=== PATIENT | male | born 1945 | race Caucasian/White ===

== ENCOUNTER 2024-01-23 20:33 | Inpatient (IN) | payer OTHER, MEDICARE ==
[~2024-01-23] VITALS: Ht 172.7 cm; Wt 54.4 kg
[2024-01-23 22:06] VITALS: BP_SYST 147; PULSE 103; RESP 16; TEMP 101.1; O2SAT 94
[2024-01-23 22:24] LABS: BILIRUBIN,URINE NEGATIVE (NEGATIVE); BLOOD, URINE NEGATIVE (NEGATIVE); CLARITY/URINE CLEAR (CLEAR); COLOR,URINE YELLOW (YELLOW); GLUCOSE,URINE TRACE (NEGATIVE); KETONES,URINE NEGATIVE (NEGATIVE); LEUKOCYTE ESTERASE ,URINE NEGATIVE (NEGATIVE); NITRITE, URINE NEGATIVE (NEGATIVE); PROTEIN URINE TRACE (NEGATIVE); UROBILINOGEN,URINE 0.2 (0.2-1.0)
[2024-01-23 22:29] LABS: BASOPHILS # (AUTO) 0.1 K/uL (0.0-0.2); BASOPHILS % (AUTO) 0.7 % (0.0-2.0); EOSINOPHILS % (AUTO) 0.5 % (0.0-4.0); HEMATOCRIT 26.9 % (36-54); HEMOGLOBIN 9.1 g/dL (14.0-18.0); LYMPHOCYTES # (AUTO) 0.4 K/uL (1.0-5.5); LYMPHOCYTES % (AUTO) 4.6 % (20.5-51.5); MEAN CORPUSCULAR HEMOGLOBIN 36 pg (27-31); MEAN CORPUSCULAR HGB CONC 34 % (32-36); MEAN CORPUSCULAR VOLUME 105 fL (79.0-98.0); MONOCYTES # (AUTO) 0.4 K/uL (0.0-1.0); MONOCYTES % (AUTO) 4.4 % (1.7-9.3); NEUTROPHILS # (AUTO) 8.3 K/uL (1.8-7.7); NEUTROPHILS % (AUTO) 89.8 % (40.0-70.0); PLATELET COUNT (AUTO) 288 K/uL (130-430); RED BLOOD CELL COUNT(AUTO) 2.56 MIL/uL (4.2-6.2); RED CELL DISTRIBUTION WIDTH 21.5 % (9.0-15.0); WHITE BLOOD COUNT (AUTO) 9.3 K/uL (4.8-10.8)
[2024-01-23 22:32] LABS: ERYTHROCYTE SEDIMENTATION RATE 48 MM/HR (0-15)
[2024-01-23 22:34] LABS: COVID19 ANTIGEN SOFIA FIA NEGATIVE (NEGATIVE)
[2024-01-23 22:36] LABS: RBC,URINE 0-3 /HPF (0-3); WBC,URINE NONE SEEN /HPF (0-3)
[2024-01-23 22:37] LABS: BACTERIA,URINE None Seen /HPF (None Seen); INFLUENZA TYPE A Negative (NEGATIVE); INFLUENZA TYPE B NEGATIVE (NEGATIVE); MUCUS,URINE None Seen /LPF (None Seen)
[2024-01-23 22:52] LABS: BLOOD GAS BASE EXCESS 1.3 mmol/L (-3.0-3.0); BLOOD GAS HCO3 23.9 mmol/L (21.0-27.0); BLOOD GAS PCO2 32.3 mmHg (32.0-45.0); BLOOD GAS PH 7.487 (7.350-7.450); BLOOD GAS PO2 67.9 mmHg (75.0-100.0)
[2024-01-23 22:59] LABS: ALANINE AMINOTRANSFERASE 17 U/L (12-78); ALBUMIN 3.2 g/dL (3.4-4.8); ANION GAP 11 (5-15); ASPARTATE AMINOTRANSFERASE 24 U/L (10-37); CALCIUM 8.9 mg/dL (8.4-11.0); CARBON DIOXIDE 29 mmol/L (23-29); CHLORIDE 101 mmol/L (98-107); CREATININE 0.82 mg/dL (0.55-1.30); GLUCOSE 216 mg/dL (74-106); POTASSIUM 4.9 mmol/L (3.5-5.1); SODIUM SERUM 141 mmol/L (136-145); TOTAL BILIRUBIN 0.4 mg/dL (0.0-1.0); TOTAL PROTEIN, SERUM 6.8 g/dL (6.4-8.3); UREA NITROGEN, BLOOD 21 mg/dL (8-21)
[2024-01-23 23:01] LABS: ANISOCYTOSIS 2+; OVALOCYTES FEW; TEAR DROP CELLS FEW
[2024-01-23 23:29] LABS: BILIRUBIN,DIRECT 0.1 mg/dL (0.0-0.3)
[2024-01-23] MEDS ORDERED: AZITHROMYCIN 500 MG/VIAL (ZITHROMAX) IV ONE (23:50)
[2024-01-24] MEDS: cefTRIAXone 1 GM IVPB PREMIX 50 ML IV ONE
[2024-01-24] MEDS: NACL 0.9% 2,000 ML IV ONE (00:04)
[2024-01-24] MEDS: AZITHROMYCIN 500 MG in NS 250 ML IV ONE (00:10)
[2024-01-24] MEDS: NACL 0.9% 1,000 ML IV SCH (04:29)
[2024-01-24] MEDS ORDERED: DABI150C PO (04:52)
[2024-01-24] MEDS ORDERED: GLIP5TAB26 PO (04:52)
[2024-01-24] MEDS ORDERED: MORP15TA PO (04:54)
[2024-01-24] MEDS ORDERED: METF-379 PO (04:54)
[2024-01-24] MEDS ORDERED: ACET-73 PO (04:57)
[2024-01-24] MEDS ORDERED: PREG25CA19 PO (04:57)
[2024-01-24] MEDS ORDERED: FAMO20TA8 PO (04:57)
[2024-01-24] MEDS ORDERED: FOLI-43 PO (04:57)
[2024-01-24] MEDS ORDERED: LIP40 PO (05:04)
[2024-01-24] MEDS ORDERED: POLY17PO4 PO (05:04)
[2024-01-24] MEDS ORDERED: MOME13HF12 INH (05:04)
[2024-01-24] MEDS ORDERED: BISA-79 PO (05:04)
[2024-01-24] MEDS ORDERED: AZEL137S7 NS (05:04)
[2024-01-24] MEDS ORDERED: MONT-47 PEG (05:04)
[2024-01-24] MEDS ORDERED: MET2.5 PO (05:04)
[2024-01-24 07:20] LABS: BASOPHILS % (AUTO) 0.2 % (0.0-2.0); EOSINOPHILS % (AUTO) 0.4 % (0.0-4.0); HEMATOCRIT 23.1 % (36-54); HEMOGLOBIN 7.7 g/dL (14.0-18.0); LYMPHOCYTES # (AUTO) 0.6 K/uL (1.0-5.5); LYMPHOCYTES % (AUTO) 8.2 % (20.5-51.5); MEAN CORPUSCULAR HEMOGLOBIN 35 pg (27-31); MEAN CORPUSCULAR HGB CONC 34 % (32-36); MEAN CORPUSCULAR VOLUME 106 fL (79.0-98.0); MONOCYTES # (AUTO) 0.3 K/uL (0.0-1.0); MONOCYTES % (AUTO) 4.4 % (1.7-9.3); NEUTROPHILS # (AUTO) 6.3 K/uL (1.8-7.7); NEUTROPHILS % (AUTO) 86.8 % (40.0-70.0); PLATELET COUNT (AUTO) 234 K/uL (130-430); RED BLOOD CELL COUNT(AUTO) 2.18 MIL/uL (4.2-6.2); RED CELL DISTRIBUTION WIDTH 22.1 % (9.0-15.0); WHITE BLOOD COUNT (AUTO) 7.2 K/uL (4.8-10.8)
[2024-01-24 07:54] LABS: ALANINE AMINOTRANSFERASE 11 U/L (12-78); ALBUMIN 2.2 g/dL (3.4-4.8); ANION GAP 11 (5-15); ASPARTATE AMINOTRANSFERASE 6 U/L (10-37); CALCIUM 8.2 mg/dL (8.4-11.0); CARBON DIOXIDE 26 mmol/L (23-29); CHLORIDE 107 mmol/L (98-107); CREATININE 0.78 mg/dL (0.55-1.30); GLUCOSE 176 mg/dL (74-106); POTASSIUM 3.8 mmol/L (3.5-5.1); SODIUM SERUM 144 mmol/L (136-145); TOTAL BILIRUBIN 0.3 mg/dL (0.0-1.0); TOTAL PROTEIN, SERUM 5.5 g/dL (6.4-8.3); UREA NITROGEN, BLOOD 16 mg/dL (8-21)
[2024-01-24] MEDS: HEPARIN SODIUM,PORCINE 5,000 UNITS/ML VIAL SUBCUT ONE (11:15)
[2024-01-24 13:35] LABS: INR 1.3 (0.80-1.20); PROTHROMBIN TIME 13.6 SECS (9.5-12.5)
[2024-01-24] MEDS: POLYETHYLENE GLYCOL 3350, 17 GM/ POWD.PACK PO ONE (17:33)
[2024-01-24 20:00] VITALS: BP_SYST 139; PULSE 83; RESP 18; TEMP 97.9; O2SAT 97
[2024-01-24] MEDS ORDERED: HEPARIN SODIUM,PORCINE 5,000 UNITS/ML VIAL SUBCUT SCH (21:00)
[2024-01-24] MEDS: PREGABALIN 25 MG CAPSULE (LYRICA) PO SCH (22:21)
[2024-01-24] MEDS: DABIGATRAN ETEXILATE MESYLATE 75 MG CAPSULE PO SCH (22:21)
[2024-01-24] MEDS: MONTELUKAST 10 MG TABLET PO SCH (22:21)
[2024-01-24] MEDS: BISACODYL 5 MG TABLET.DR (DULCOLAX) PO SCH (22:22)
[2024-01-25] VITALS (7 sets, daily range): BP systolic 105–115; PULSE 74–79; RESP 16–18; TEMP 97.3–98.6; O2SAT 96–100
[2024-01-25 04:55] LABS: BASOPHILS % (AUTO) 0.6 % (0.0-2.0); EOSINOPHILS # (AUTO) 0.1 K/uL (0.0-0.4); EOSINOPHILS % (AUTO) 1.5 % (0.0-4.0); HEMATOCRIT 23.3 % (36-54); LYMPHOCYTES # (AUTO) 0.7 K/uL (1.0-5.5); LYMPHOCYTES % (AUTO) 14.7 % (20.5-51.5); MEAN CORPUSCULAR HEMOGLOBIN 36 pg (27-31); MEAN CORPUSCULAR HGB CONC 34 % (32-36); MEAN CORPUSCULAR VOLUME 104 fL (79.0-98.0); MONOCYTES # (AUTO) 0.1 K/uL (0.0-1.0); MONOCYTES % (AUTO) 2.3 % (1.7-9.3); NEUTROPHILS # (AUTO) 3.7 K/uL (1.8-7.7); NEUTROPHILS % (AUTO) 80.9 % (40.0-70.0); PLATELET COUNT (AUTO) 251 K/uL (130-430); RED BLOOD CELL COUNT(AUTO) 2.24 MIL/uL (4.2-6.2); RED CELL DISTRIBUTION WIDTH 21.2 % (9.0-15.0); WHITE BLOOD COUNT (AUTO) 4.5 K/uL (4.8-10.8)
[2024-01-25] MEDS: MORPHINE SULFATE 30 MG Immediate Release TABLET PO PRN (05:27)
[2024-01-25 05:29] LABS: ALANINE AMINOTRANSFERASE 14 U/L (12-78); ALBUMIN 2.2 g/dL (3.4-4.8); ANION GAP 10 (5-15); ASPARTATE AMINOTRANSFERASE 10 U/L (10-37); CALCIUM 8.2 mg/dL (8.4-11.0); CARBON DIOXIDE 26 mmol/L (23-29); CHLORIDE 106 mmol/L (98-107); CREATININE 0.73 mg/dL (0.55-1.30); GLUCOSE 190 mg/dL (74-106); PHOSPHORUS 2.3 mg/dL (2.7-4.5); POTASSIUM 3.6 mmol/L (3.5-5.1); SODIUM SERUM 142 mmol/L (136-145); TOTAL BILIRUBIN 0.3 mg/dL (0.0-1.0); TOTAL PROTEIN, SERUM 5.5 g/dL (6.4-8.3); UREA NITROGEN, BLOOD 14 mg/dL (8-21)
[2024-01-25] MEDS: POLYETHYLENE GLYCOL 3350, 17 GM/ POWD.PACK PO SCH (08:24)
[2024-01-25] MEDS ORDERED: POLYETHYLENE GLYCOL 3350, 17 GM/ POWD.PACK PO SCH (09:00)
[2024-01-25] MEDS: FAMOTIDINE 20 MG TABLET PO SCH (09:15)
[2024-01-25] MEDS: FOLIC ACID 1 MG TABLET PO SCH (09:15)
[2024-01-25] MEDS ORDERED: IPRATROPIUM/ALBUTEROL SULFATE 3 ML AMPUL.NEB (DUONEB) INH PRN (18:15)
[2024-01-25] MEDS ORDERED: AZITHROMYCIN 500 MG in NS 250 ML IV SCH ×2 (21:00→22:00)
[2024-01-25] MEDS ORDERED: cefTRIAXone 1 GM IVPB PREMIX 50 ML IV SCH (21:00)
[2024-01-25] MEDS ORDERED: CEFTRIAXONE SOD 1 GM/ D5W 50 ML IV SCH (21:00)
[2024-01-26] MEDS ORDERED: ATORVASTATIN 20 MG TABLET PO SCH (09:00)
== END 2024-01-25 20:30 | disposition short-term general hospital (02) | DRG 190 ==
LOC: SED 20:33 → STU 01-24 03:28
PROVIDERS: ADMIT Student in an Organized Health Care Education/Training Program; ATTEND Student in an Organized Health Care Education/Training Program
DX: J44.1 Chronic obstructive pulmonary disease with (acute) exacerbation (principal); E43 Unspecified severe protein-calorie malnutrition; G93.41 Metabolic encephalopathy; I82.503 Chronic embolism and thrombosis of unspecified deep veins of lower extremity, bilateral; Z68.1 Body mass index [BMI] 19.9 or less, adult; Z20.822 Contact with and (suspected) exposure to COVID-19; D64.9 Anemia, unspecified; I48.91 Unspecified atrial fibrillation; E11.9 Type 2 diabetes mellitus without complications; Z51.5 Encounter for palliative care; Z88.0 Allergy status to penicillin; Z79.899 Other long term (current) drug therapy; Z79.84 Long term (current) use of oral hypoglycemic drugs; Z74.01 Bed confinement status
CPT/HCPCS: 36415; 36600; 70450-TC; 71045; 80048; 80053; 80076; 81000; 81001; 81015; 82803; 82948; 83605; 83735; 84100; 84484; 85025; 85610; 85651; 85730; 87040; 97112-GP; 97530-GP; 99291; G0378; J0456; J0696; J1644; J2274; J7050; J7060